=== PATIENT | male | born 1955 ===

== ENCOUNTER 2017-05-18 07:37 | Day surgery (SDC) | payer BC ==
[2017-05-18 07:54] VITALS: BMI 25.1
[2017-05-18] MEDS ORDERED: Propofol 10 mg/ml Inj (20 ML) ONE (09:16)
[2017-05-18] MEDS ORDERED: Lidocaine 1% Inj (20ml) ONE (09:17)
[2017-05-18] MEDS ORDERED: Lactated Ringer's 500 ML IV ONE (09:18)
[2017-05-18 10:01] VITALS: TEMP 98.6
[2017-05-18 10:10] VITALS: PULSE 58
[2017-05-18 10:33] VITALS: BP 125/77; RESP 15; O2SAT 100
== END 2017-05-18 11:00 | disposition home or self-care (01) ==
LOC: C.ENDO 07:37
PROVIDERS: ATTEND Internal Medicine Gastroenterology
DX: Z80.0 Family history of malignant neoplasm of digestive organs (principal); K21.9 Gastro-esophageal reflux disease without esophagitis; K20.9 Esophagitis, unspecified; K29.70 Gastritis, unspecified, without bleeding; Z12.11 Encounter for screening for malignant neoplasm of colon; K57.90 Diverticulosis of intestine, part unspecified, without perforation or abscess without bleeding; K64.8 Other hemorrhoids
CPT/HCPCS: 43239; 45378; 88305; J2704; J7120